=== PATIENT | male | born 1995 | race Caucasian/White ===

== ENCOUNTER 2020-10-19 00:31 | Emergency (ER) | payer OTHER ==
[~2020-10-19] VITALS: Ht 190.5 cm; Wt 108.9 kg
[~2020-10-19 00:31] MED LIST: ADDERALL20 MG PO; ATARAX25 MG PO; FLEXERIL5 MG PO; MOTRIN800 MG PO; PREDNISONE20 MG PO
== END 2020-10-19 04:00 | disposition home or self-care (01) ==
LOC: ED 00:31
DX: S29.019A Strain of muscle and tendon of unspecified wall of thorax, initial encounter (principal); S39.012A Strain of muscle, fascia and tendon of lower back, initial encounter; V89.0XXA Person injured in unspecified motor-vehicle accident, nontraffic, initial encounter; Y93.89 Activity, other specified; Y92.89 Other specified places as the place of occurrence of the external cause; Y99.8 Other external cause status